=== PATIENT | male | born 1950 | race Caucasian/White ===

== ENCOUNTER 2020-07-29 01:48 | Outpatient (CLI) | payer MEDICARE, BC, SELFPAY ==
--- NOTE | 2020-07-29 | DI.RAD_ITS ---
EXAM: XR LUMBAR SPINE COMPLETE CLINICAL HISTORY: LUMBAR BACK PAIN, M54.5,H/O RA ON METHOTREZATE. TECHNIQUE: 2D digital imaging was performed. COMPARISON: No exams were available for comparison FINDINGS: There are 5 lumbar type vertebral bodies. No spondylolysis or spondylolisthesis is present. Mild di sc space narrowing is seen at L1-L2. Endplate osteophytes are seen from L2-L3 through L4-L5. Degene rative changes of the facets are seen at L4-5 and L5-S1. No acute fracture or subluxation is present . Atherosclerosis is present. IMPRESSION: [id number] degenerative changes in the lumbar spine. DATA REPOSITORY: RADIATION DOSE DELIVERED:
== END 2020-07-29 01:49 | disposition home or self-care (01) ==
PROVIDERS: Visit Provider Internal Medicine
DX: M47.816 Spondylosis without myelopathy or radiculopathy, lumbar region (principal)
CPT/HCPCS: 72110

== ENCOUNTER 2020-09-18 10:13 | Outpatient (REF) | payer MEDICARE, BC, SELFPAY ==
[2020-09-18 13:33] LABS: Anion Gap 5.2 mmol/L (3-11); BUN 27 mg/dL (7-18); CO2 30.8 mmol/L (21.0-32.0); CREATININE 1.3 mg/dL (0.70-1.30); Chloride 105 mmol/L (98-107); Estimated GFR 54.57 (mL/min/1.73m2); Glucose 95 mg/dL (74-106); Potassium 4.1 mmol/L (3.5-5.1); Sodium 141 mmol/L (136-145)
== END 2020-09-18 10:14 | disposition home or self-care (01) ==
LOC: NCHCN 10:13
DX: I10 Essential (primary) hypertension (principal)
CPT/HCPCS: 80048

== ENCOUNTER → 2022-03-20 23:07 | Outpatient (CLI) | payer MEDICARE, BC, SELFPAY ==
--- NOTE | 2022-03-20 | DI.RAD_ITS ---
Exam(s) XR FOOT LT COMPLETE EXAM: XR FOOT LT COMPLETE CLINICAL HISTORY: LEFT FOOT PAIN M79.672 TECHNIQUE: COMPARISON: No exams were available for comparison FINDINGS: Three views were obtained. There are enthesophytes at the sites of attachment of plantar fascia and Achilles tendon on the calcaneus. There are mild rebolledo articular degenerative changes of foot. No oth er bony or soft tissue abnormality seen. IMPRESSION: RADIATION DOSE DELIVERED: Total DLP
== END ==
PROVIDERS: Visit Provider Nurse Practitioner Family
DX: M77.32 Calcaneal spur, left foot (principal)
CPT/HCPCS: 73630

== ENCOUNTER 2022-04-03 15:07 | Outpatient (REF) | payer MEDICARE, BC, SELFPAY ==
[2022-04-03 17:09] LABS: ALT 29 U/L (16-63); AST 21 U/L (15-37); Albumin 3.6 g/dL (3.4-5.0); Alkaline Phosphatase 80 U/L (46-116); Anion Gap 8.1 mmol/L (3-11); BUN 21 mg/dL (7-18); Bilirubin, Total 0.8 mg/dL (0.2-1.0); CO2 29.9 mmol/L (21.0-32.0); CREATININE 1.3 mg/dL (0.70-1.30); Calculated LDL 113 mg/dL (<100); Chloride 105 mmol/L (98-107); Cholesterol 163 mg/dL (<200); Estimated GFR 58.37 (mL/min/1.73m2); Glucose 87 mg/dL (74-106); HDL Cholesterol 37 mg/dL (40-60); Potassium 4.9 mmol/L (3.5-5.1); Sodium 143 mmol/L (136-145); Total Protein 7.4 g/dL (6.4-8.2); Triglyceride 69 mg/dL (<150)
== END 2022-04-03 15:08 | disposition home or self-care (01) ==
LOC: NCHCN 15:07
PROVIDERS: PCP Family Medicine; Visit Provider Family Medicine
DX: I10 Essential (primary) hypertension (principal); E78.5 Hyperlipidemia, unspecified
CPT/HCPCS: 80053; 80061

== ENCOUNTER → 2022-05-21 03:11 | Outpatient (CLI) | payer MEDICARE, BC, SELFPAY ==
--- NOTE | 2022-05-21 07:25 | DI.US_ITS ---
APPROVED REPORT EXAM: Comprehensive 2D, Doppler, and color-flow Echocardiogram Patient Location: Out-Patient Ocular Pathologist: Jackie Reyes RDCS (AE) Indications: Atrial fibrillation Other Information Study Quality: Adequate Conclusion Normal left ventricular wall thickness and chamber size. Estimated ejection fraction is 59%. Wall m otion is normal Normal right ventricular size and systolic function Both atria are normal in size There is no structural or hemodynamically significant valvular disease Normal estimated right ventricular systolic pressure 19 mmHg Wall motion Left Ventricle The left ventricle is normal size. The left ventricular systolic function is normal. The left ventric ular ejection fraction is within the normal range. There is normal left ventricular wall thickness. T here is normal LV segmental wall motion. There is no ventricular septal defect visualized. LVEF is 59 %. Right Ventricle The right ventricle is normal size. The right ventricular systolic function is normal. The RVSP is 19 .1 mmHg. Atria The left atrium size is normal. The right atrium size is normal. The interatrial septum is intact wit h no evidence for an atrial septal defect. Aortic Valve The aortic valve is normal in structure. There is no aortic valvular stenosis. No aortic regurgitatio n is present. Mitral Valve Mild mitral annular calcification. No evidence of mitral valve stenosis. Trace to mild mitral regurgi tation. Tricuspid Valve The tricuspid valve is normal in structure. There is no tricuspid valve stenosis. Trace tricuspid reg urgitation. Pulmonic Valve The pulmonary valve is normal in structure. There is no pulmonic valvular stenosis. There is no pulmo guillermina valvular regurgitation. Great Vessels The aortic root is normal in size. The ascending aorta is normal in size. Aortic arch is normal in ca liber. IVC is normal in size and collapses >50% with inspiration. Pericardium There is no pericardial effusion. 2D Dimensions IVSD d PLAX 1.04 cm M: 0.6-1.2 LV Vol A2C d MOD 101.1 mL LVPW d PLAX 1.05 cm M: 0.6 - 1.2 LV Vol A4C d MOD 100.1 mL LVID d PLAX 4.57 cm M: 4.2 - 5.8 LA vol/ BSA A2C s A-L 41.8 mL/m2 LVDs 3.05 cm M: 2.5 - 4.0 LA vol/ BSA A4C s A-L 33.3 mL/m2 Ao Root d 2.88 cm M: 3.1 - 3.7 LA Vol/ BSA Biplane s A-L 38.0 mL/m2 RA Area A4C 19.72 cm2 LA Area A4C s MOD 22.31 cm2 RA Vol/ BSA A4C s A-L 30.0 mL/m2 LA Area A2C s MOD 24.56 cm2 Ao Asc Diam d 3.35 cm M: 2.6 - 3.4 LV EF A4C MOD 59.0 % LV EF Teichholz 60.8 % LV EF A2C MOD 59.4 % LVEF (Kat's) 59.10 % M: 52 - 72 LV EF Biplane MOD 59.1 % LV Volume 75.32 mL M: 62 - 150 SV 59.82 mL LV Volume Index 36.92 mL/m2 M: 34 - 74 SV Index 29.21 mL/m2 LV Vol Biplane MOD 101.2 mL FS 32.35 % M-Mode TAPSE 1.90 cm (M/F) >1.7 LV Diastology MV E' medial 0.140 (>0.07 m/s) MV E Vmax 1.09 (0.4-1.3 m/s) LV E/e MED 7.80 (<14) MV E' lateral 0.130 (>0.1 m/s) LV E/e LAT 8.35 (<14) MV E/E' medial 7.81 MV E/E' lateral 8.39 Aortic Valve LVOT Area 3.14 cm2 AoV Area Vmax 2.46 cm2 LVOT Vmax 0.94 m/s AoV Area/ BSA (Vmax) 1.20 cm2/m2 LVOT Mean Rajinder. 0.60 m/s GONZÁLEZ Mean Rajinder. 2.15 cm2 LVOT Peak Grad 3.5 mmHg GONZÁLEZ Mean Rajinder. Index 1.05 cm2/m2 LVOT Mean Grad 1.7 mmHg LVOT VTI 0.173 m LVOT Diam s 2.00 cm AoV Vmax 1.20 m/s Velocity Ratio 0.78 AoV Mean Rajinder. 0.87 m/s AoV Peak Grad 5.8 mmHg LVOT SV 54.25 mL AoV Mean Grad 3.3 mmHg AoV VTI 0.222 m AoV Area VTI 2.45 cm2 AoV Area/ BSA (VTI) 1.20 cm/m2 Mitral Valve MV DT 277 (160-240 msec) MV PHT 80 msec MV Area PHT 2.74 cm2 MV VTI 0.245 m MV Area VTI 2.21 (4.0-6.0 cm2) Pulmonary Valve PV Vmax 0.96 (0.5-1.5 m/s) RVOT Peak Gr. 2.29 mmHg PV Peak Grad 3.7 mmHg RVOT Mean Gr. 1.05 mmHg PV Mean Grad 1.9 mmHg RVOT VTI 0.143 m PV VTI 0.171 m RVOT Vmax 0.76 m/s Tricuspid Valve TR Peak Grad 16.0 mmHg TR Vmax 2.00 m/s RA Pressure 3.00 mmHg RVSP (TR) 19.1 mmHg
== END ==
PROVIDERS: PCP Family Medicine; Visit Provider Nurse Practitioner Family
DX: I48.91 Unspecified atrial fibrillation (principal)
CPT/HCPCS: 93306

== ENCOUNTER 2022-05-26 07:52 | Outpatient (CLI) | payer MEDICARE, BC, SELFPAY ==
--- NOTE | 2022-05-26 07:45 | RT.EKG_ITS ---
APPROVED REPORT Exam: Resting ECG Reason for Exam: afib Patient Location: O HR:72 bpm ECG Measurements Heart Rate 72 AXIS MS [id number] P [id number] QRSd 104 QRS 157 QT 389 T 32 QTc 426 Conclusion Atrial fibrillation...V-rate 61- 82, irreg A-activity Left posterior fascicular block...trm axis(110,210), init force sup Abnormal R-wave progression, late transition...QRS area<0 in V5/V6
== END 2022-05-26 07:53 | disposition home or self-care (01) ==
LOC: DI.CARD 07:54
PROVIDERS: PCP Family Medicine; Visit Provider Internal Medicine Cardiovascular Disease
DX: I48.91 Unspecified atrial fibrillation (principal); R94.31 Abnormal electrocardiogram [ECG] [EKG]; I44.4 Left anterior fascicular block
CPT/HCPCS: 93010

== ENCOUNTER → 2022-05-26 11:18 | Outpatient (BNVA) | payer MEDICARE, BC, SELFPAY | PROVIDERS: PCP Family Medicine; Referring Provider Family Medicine; Visit Provider Internal Medicine Cardiovascular Disease | DX: I48.91 Unspecified atrial fibrillation (principal); Z79.01 Long term (current) use of anticoagulants; I10 Essential (primary) hypertension; Z87.891 Personal history of nicotine dependence | CPT/HCPCS: 93005; 99202; 99203 ==

== ENCOUNTER 2023-05-04 15:26 | Outpatient (REF) | payer MEDICARE, BC, SELFPAY ==
[2023-05-04 16:25] LABS: ESR 12 mm/hr (0-20)
[2023-05-04 16:26] LABS: Abs Immature Grans 0.02 10^3/uL (0.0-0.06); Absolute Basophil Count 0.07 10^3/uL (0.0-0.2); Absolute Lymphocyte Count 1.58 10^3/uL (1.2-3.4); Absolute Monocyte Count 1.27 10^3/uL (0.1-0.8); Absolute Neutrophil Count 4.81 10^3/uL (1.2-6.7); Basophils % 0.9; Eosinophils % 3.7; HCT 47.8 % (40.0-50.0); HGB 15.6 g/dL (13.5-17.5); Immature Grans % 0.2; Lymphocytes % 19.6; MCH 31.3 pg (27.0-33.0); MCHC 32.6 % (32.0-36.0); MCV 96 fL (80-95); MPV 10.3 fL (8.0-11.0); Monocytes % 15.8; Neutrophils % 59.8; Platelet Count 204 10^3/uL (130-400); RBC 4.98 10^6/uL (4.36-5.78); RDW 14.7 % (11.8-14.1); RDW-SD 50.3 fL; WBC 8.05 10^3/uL (4.4-10.8)
[2023-05-04 16:38] LABS: ALT 31 U/L (16-63); AST 25 U/L (15-37); Albumin 3.4 g/dL (3.4-5.0); Alkaline Phosphatase 90 U/L (46-116); Anion Gap 6.3 mmol/L (3-11); BUN 19 mg/dL (7-18); Bilirubin, Total 0.7 mg/dL (0.2-1.0); C-Reactive Protein 0.83 mg/dL (0.0-0.3); CO2 29.7 mmol/L (21.0-32.0); CREATININE 1.4 mg/dL (0.70-1.30); Calcium 9.6 mg/dL (8.5-10.1); Chloride 104 mmol/L (98-107); Estimated GFR 53.07 (mL/min/1.73m2); Glucose 111 mg/dL (74-106); Potassium 4.7 mmol/L (3.5-5.1); Sodium 140 mmol/L (136-145); Total Protein 7.8 g/dL (6.4-8.2)
== END 2023-05-04 15:27 | disposition home or self-care (01) ==
LOC: NCHCN 15:26
PROVIDERS: PCP Family Medicine; Visit Provider Family Medicine
DX: M06.9 Rheumatoid arthritis, unspecified (principal); I10 Essential (primary) hypertension
CPT/HCPCS: 80053; 85652; 85025; 86140

== ENCOUNTER 2023-07-27 15:14 | Outpatient (REF) | payer MEDICARE, BC, SELFPAY ==
[2023-07-27 15:32] LABS: Abs Immature Grans 0.02 10^3/uL (0.0-0.06); Absolute Eosinophil Count 0.25 10^3/uL (0.0-0.7); Absolute Lymphocyte Count 2.21 10^3/uL (1.2-3.4); Absolute Monocyte Count 0.53 10^3/uL (0.1-0.8); Absolute Neutrophil Count 4.23 10^3/uL (1.2-6.7); Basophils % 1.4; Eosinophils % 3.4; HCT 47.1 % (40.0-50.0); HGB 15.4 g/dL (13.5-17.5); Immature Grans % 0.3; Lymphocytes % 30.1; MCHC 32.7 % (32.0-36.0); MCV 98 fL (80-95); MPV 10.5 fL (8.0-11.0); Monocytes % 7.2; Neutrophils % 57.6; Platelet Count 270 10^3/uL (130-400); RBC 4.82 10^6/uL (4.36-5.78); RDW 13.2 % (11.8-14.1)
[2023-07-27 15:52] LABS: ALT 43 U/L (16-63); AST 40 U/L (15-37); Albumin 3.3 g/dL (3.4-5.0); Alkaline Phosphatase 76 U/L (46-116); Anion Gap 9.7 mmol/L (3-11); BUN 27 mg/dL (7-18); Bilirubin, Total 0.7 mg/dL (0.2-1.0); C-Reactive Protein 0.74 mg/dL (<or=0.5); CO2 28.3 mmol/L (21.0-32.0); CREATININE 1.6 mg/dL (0.70-1.30); Chloride 104 mmol/L (98-107); Estimated GFR 45.21 (mL/min/1.73m2); Glucose 87 mg/dL (74-106); Potassium 4.2 mmol/L (3.5-5.1); Sodium 142 mmol/L (136-145); Total Protein 7.6 g/dL (6.4-8.2)
[2023-08-17 17:21] LABS: Calcium 9.3 mg/dL (8.5-10.1); ESR 8 mm/hr (0-20); WBC 7.34 10^3/uL (4.4-10.8)
== END 2023-07-27 15:15 | disposition home or self-care (01) ==
LOC: NCHCN 15:14
PROVIDERS: PCP Family Medicine; Visit Provider Family Medicine
DX: M06.9 Rheumatoid arthritis, unspecified (principal)
CPT/HCPCS: 80053; 85652; 85025; 86140

== ENCOUNTER 2025-05-01 17:11 | Outpatient (REF) | payer MEDICARE, BC, SELFPAY ==
[2025-05-01 21:44] LABS: ALT 16 U/L (10-49); AST 24 U/L (<34); Albumin 4.0 g/dL (3.4-5.0); Alkaline Phosphatase 79 U/L (46-116); Anion Gap 7.4 mmol/L (3-11); BUN 17 mg/dL (9-23); Bilirubin, Total 0.60 mg/dL (0.2-1.2); CO2 28.6 mmol/L (20.0-31.0); Calcium 9.1 mg/dL (8.3-10.6); Chloride 106 mmol/L (98-107); Cholesterol 166 mg/dL (<200); Glucose 80 mg/dL (74-106); HDL Cholesterol 35 mg/dL (>40); Potassium 4.4 mmol/L (3.5-5.1); Sodium 142 mmol/L (136-145); Total Protein 7.5 g/dL (5.7-8.2)
[2025-05-01 22:17] LABS: Microalb ug/mg Crea 42.7 ug/mg Cr
== END 2025-05-01 17:12 | disposition home or self-care (01) ==
LOC: NCHCN 17:11
PROVIDERS: PCP Family Medicine; Visit Provider Nurse Practitioner Family
DX: I10 Essential (primary) hypertension (principal)
CPT/HCPCS: 80053; 80061; 82043; 82570

== ENCOUNTER 2025-05-29 15:09 | Outpatient (REF) | payer MEDICARE, SELFPAY ==
[2025-05-29 21:21] LABS: Anion Gap 7.4 mmol/L (3-11); BUN 16 mg/dL (9-23); CO2 30.6 mmol/L (20.0-31.0); Calcium 9.0 mg/dL (8.3-10.6); Chloride 105 mmol/L (98-107); Glucose 87 mg/dL (74-106); Potassium 4.5 mmol/L (3.5-5.1); Sodium 143 mmol/L (136-145)
== END 2025-05-29 15:10 | disposition home or self-care (01) ==
LOC: NCHCN 15:09
PROVIDERS: PCP Family Medicine; Visit Provider Nurse Practitioner Family
DX: I10 Essential (primary) hypertension (principal)
CPT/HCPCS: 80048